=== PATIENT | female | born 1985 | race Caucasian/White ===

== ENCOUNTER → 2021-02-01 | Outpatient (CLI) | payer MEDICARE, OTHER ==
--- NOTE | 2021-02-01 09:01 | KCIC ---
EXAM: Left shoulder sonogram. HISTORY: Palpable lump. TECHNIQUE: Sonographic imaging of the left shoulder was performed. COMPARISON: None. FINDINGS: There is no convincing solid mass, fluid collection or cyst at the site of palpable concern along the left shoulder. IMPRESSION: Unremarkable shoulder sonogram. Continued clinical follow-up of palpable abnormality is r ecommended. Cross-sectional imaging can be performed if there is concern for a sonographically occult lesion. Electronically signed by: Kamini Hirsch MD (02/01/2021 8:59 AM) [id number]
== END ==
LOC: KCIC US 08:08
PROVIDERS: ATTEND Nurse Practitioner Gerontology
DX: M79.89 Other specified soft tissue disorders (principal); R22.2 Localized swelling, mass and lump, trunk
CPT/HCPCS: 76881